=== PATIENT | male | born 1970 | race Two or more races ===

== ENCOUNTER 2020-08-16 06:10 | Emergency (ER) | payer OTHER ==
[2020-08-16 06:58] VITALS: TEMP 98.2; BMI 22.5
[2020-08-16] MEDS ORDERED: IBUPROFEN 600 MG TABLET (FP) PO ONE ×2 (07:36→10:53)
[2020-08-16 08:36] LABS: BASO % 0.6 % (0-2.0); EOS % 3.3 % (0-4.5); HEMATOCRIT 45.5 % (35.4-49); HEMOGLOBIN 15.5 GM/dL (11.7-16.9); LYMPH % 28.2 % (8-40); MCH 32.5 pg (25.7-33.7); MEAN CELL VOLUME 95.5 fl (80-96); MEAN PLT VOLUME 9.3 fl (7.5-11.1); NEUT % 59.9 % (42.8-82.8); PLATELET COUNT 180 K/MM3 (134-434); RBC 4.76 M/mm3 (4.00-5.60); RDW 13.4 % (11.9-15.9)
[2020-08-16 08:54] LABS: POTASSIUM 4.1 mmol/L (3.5-5.1)
[2020-08-16 09:00] LABS: ALBUMIN 3.8 g/dl (3.4-5.0); BLOOD UREA NITROGEN 12.7 mg/dL (7-18)
[2020-08-16 09:01] LABS: BILIRUBIN,TOTAL 0.7 mg/dL (0.2-1)
[2020-08-16 12:56] VITALS: BP 117/72; PULSE 64
== END 2020-08-16 12:56 | disposition home or self-care (01) ==
LOC: JER 06:10
DX: M94.0 Chondrocostal junction syndrome [Tietze] (principal)
CPT/HCPCS: 36415; 71046-TC-FY; 80053; 82550; 84484; 85025; 93005; 93010; 99285-25